=== PATIENT | male | born 1945 | race Caucasian/White ===

== ENCOUNTER 2016-11-12 15:09 | Inpatient (IN) | payer OTHER ==
[~2016-11-12] VITALS: Ht 167.6 cm; Wt 88.8 kg
[~2016-11-12 15:09] MED LIST: ADVAIR HFA120 INHALA IH; ASPIRIN EC325 MG PO; ASPIRIN325 MG PO; Advair 250/50 Diskus IH; Advair HFA 115/21 IH; Ambien PO; Aspirin E.C. PO; Atarax,Vistaril PO; CITALOPRAM HBR10 MG PO; Combivent IH; DALIRESP500 MCG PO; DIABETES MED PO; Ecotrin PO; Fioricet,Esgic,Repan PO; GABAPENTIN300 MG PO; HABITROL,NICODE21 MG TD; Habitrol,Nicoderm CQ TD; JANUVIA100 MG PO; LIBRIUM25 MG PO; Levaquin PO; MOTRIN600 MG PO; Mevacor PO; Motrin PO; NOHOMEMEDS; OXYCODONE HCL15 MG PO; OXYCODONE HCL20 M1 PO; OXYCODONE-APAP1 EACH; OXYCONTIN15 MG; PREDNISONE10 MG PO; PREDNISONE20 MG PO; PROAIR HFA8.5 GM IH; PROTONIX40 MG PO; Percocet 5/325,Endoc PO; Protonix PO; Remove Nicotine Patc TD; SKELAXIN800 MG PO; SPIRIVA1 INHALATI IH; SYMBICORT60 INHALAT; Singulair PO; THERAGRAN1 TABLET PO; TYLENOL REGULA325 MG PO; TYLENOL WITH C1 EACH PO; Theragran PO; Thiamine,Vitamin B1 PO; UNABLEOBTAIN; VITAMIN B-1100 MG PO; Zithromax PO; celeXA PO; oxyCODONE PO; predniSONE PO
[2016-11-12 16:34] LABS: EOSINOPHIL (%) 1.9 % (0-5); EOSINOPHIL COUNT 0.2 K/uL (0-0.3); HEMATOCRIT 44.2 % (38.0-50.0); IMMATURE GRANULOCYTE (%) 0.2 % (0.0-0.7); IMMATURE GRANULOCYTE COUNT 0.2 K/uL; LYMPHOCYTE COUNT 1.8 K/uL (1.0-2.8); MCH 29.8 PG (29.0-34.0); MCHC 34.6 G/DL (30.0-36.0); MEAN PLAT.VOLUME 11.1 uM^3 (9.0-12.4); MONOCYTE (%) 9.2 % (3-12); NEUTROPHIL (%) 71.2 % (45-76); NEUTROPHIL COUNT 7.5 K/uL (1.8-6.4); PLATELET COUNT 269 K/uL (156-360); RBC DIS.WIDTH-CV 13.3 % (11.8-14.6); RBC DIS.WIDTH-SD 40.9 % (39-53); RED BLOOD COUNT 5.14 M/uL (4.00-5.50); WHITE BLOOD COUNT 10.5 K/uL (4.1-10.2)
[2016-11-12 16:41] LABS: CHLORIDE 104 mEq/L (99-109); POTASSIUM 4.3 mEq/L (3.7-5.4); SODIUM 140 mEq/L (136-147)
[2016-11-12 16:42] LABS: GLUCOSE 122 mg/dL (70-99)
[2016-11-12 16:43] LABS: INTER. NORMALIZED RATIO 1.1; PROTHROMBIN TIME 10.7 (9.2-11.2); PTT 25.7 (25-32)
[2016-11-12 16:44] LABS: ANION GAP 14 MEQ/L (2-14)
[2016-11-12 16:45] LABS: SERUM ETHYL ALCOHOL < 10 mg/dL
[2016-11-12 16:46] LABS: GFR ESTIMATE (CALCULATED) > 59 mL/min/
[2016-11-12 16:47] LABS: UREA NITROGEN (BUN) 15 mg/dL (9-23)
[2016-11-12 16:53] LABS: TROP-I INTERPRETATION NEGATIVE; TROPONIN-I < 0.01 ng/mL (0.0-0.30)
[2016-11-12 18:09] LABS: ADD MIUA? NO; BILIRUBIN NEGATIVE; BLOOD NEGATIVE; COLOR YELLOW ((YELLOW)); GLUCOSE (STRIP) NEGATIVE; KETONES TRACE; LEUKOCYTES NEGATIVE; NITRITE NEGATIVE; PROTEIN (STRIP) NEGATIVE; SPECIFIC GRAVITY 1.014 (1.000-1.030); UCUL ADDED? NO
[2016-11-12 18:30] LABS: AMPHETAMINE NEGATIVE (500 ng/mL); BARBITURATES NEGATIVE (200 ng/mL); BENZODIAZEPINES PRESUMPTIVE POSITIVE (150 ng/mL); COCAINE NEGATIVE (150 ng/mL); INTERNAL CONTROLS VALID? YES; METHADONE NEGATIVE (200 ng/mL); METHAMPHETAMINE NEGATIVE (500 ng/mL); OPIATES (MORPHINE) NEGATIVE (100 ng/mL); OXYCODONE NEGATIVE (100 ng/mL); PHENCYCLIDINE NEGATIVE (25 ng/mL); PROPOXYPHENE NEGATIVE (300 ng/mL); THC CANNABINOIDS NEGATIVE (50 ng/mL); TRICYCLIC ANTIDEPRESSANTS NEGATIVE (300 ng/mL)
[2016-11-12 18:31] LABS: ADD MEDTOX COMMENT Y
[2016-11-12 19:20] LABS: BENZODIAZEPINES QUANT VALUE 0 NG/ML
[2016-11-12 19:21] LABS: BENZODIAZEPINES, URINE SCREEN Negative (200 ng/mL)
[2016-11-12 23:44] VITALS: BP 118/74
[2016-11-13 01:00] LABS: MAGNESIUM 2.1 mg/dL (1.3-2.7)
[2016-11-13 07:38] VITALS: BP 108/57
[2016-11-13 11:28] VITALS: BP 116/71
[2016-11-13 12:44] LABS: TOTAL BILIRUBIN 0.6 mg/dL (0.0-1.0)
[2016-11-13 12:45] LABS: ALKALINE PHOSPHATASE 94 IU/L (3-129)
[2016-11-13 12:48] LABS: DIRECT BILIRUBIN 0.3 mg/dL (0.0-0.3)
[2016-11-13 15:40] VITALS: BP 121/64
[2016-11-14 04:00] VITALS: BP 140/77
[2016-11-14 08:01] VITALS: BP 119/70
[2016-11-14 15:36] VITALS: BP 105/65
[2016-11-14 21:34] LABS: POINT-OF-CARE METER ID UU13113830
[2016-11-15 08:02] LABS: POINT-OF-CARE METER ID UU13113830; POINT-OF-CARE USER ID HRSENV50
[2016-11-15 09:05] VITALS: BP 101/65
[2016-11-15 12:06] LABS: POINT-OF-CARE METER ID UU13113830
[2016-11-15 12:10] LABS: HEMATOCRIT 39.4 % (38.0-50.0); MCV 88.3 FL (86-99); MEAN PLAT.VOLUME 11.3 uM^3 (9.0-12.4); PLATELET COUNT 216 K/uL (156-360); RBC DIS.WIDTH-CV 13.1 % (11.8-14.6); RBC DIS.WIDTH-SD 42.3 % (39-53); RED BLOOD COUNT 4.46 M/uL (4.00-5.50)
[2016-11-15 12:20] LABS: WHITE BLOOD COUNT 7.3 K/uL (4.1-10.2)
[2016-11-15 12:23] LABS: ALKALINE PHOSPHATASE 79 IU/L (3-129); ANION GAP 6 MEQ/L (2-14); CHLORIDE 104 MEQ/L (99-109); GFR ESTIMATE (CALCULATED) > 59 mL/min/; GLUCOSE 121 mg/dL (70-99); POTASSIUM 4.3 MEQ/L (3.7-5.4); SAMPLE HEMOLYSIS CHECK 0; SAMPLE ICTERIC CHECK 0; SAMPLE LIPEMIA CHECK 0; SODIUM 139 MEQ/L (136-147); TOTAL BILIRUBIN 0.6 MG/DL (0.0-1.0); UREA NITROGEN (BUN) 15 mg/dL (9-23)
[2016-11-15 15:49] VITALS: BP 101/55
[2016-11-15 16:40] LABS: POINT-OF-CARE METER ID UU13113830
[2016-11-15 20:49] LABS: POINT-OF-CARE METER ID UU13113830
[2016-11-15 23:45] VITALS: BP 114/69
[2016-11-16 06:23] LABS: POINT-OF-CARE METER ID UU13113830; POINT-OF-CARE USER ID BHSSMG
[2016-11-16 07:55] LABS: Estimated Average Glucose 131 mg/dL (70-123); HEMOGLOBIN A1c (GLYCOHEMOGLOB) 6.2 % HGB (Below 5.7)
[2016-11-16 08:14] VITALS: BP 117/67
[2016-11-16 16:27] VITALS: BP 102/69
[2016-11-16 17:24] LABS: POINT-OF-CARE METER ID UU13113830; POINT-OF-CARE USER ID BHSMEW
[2016-11-16 18:16] LABS: POINT-OF-CARE METER ID UU13113830
[2016-11-16 20:44] LABS: POINT-OF-CARE METER ID UU13113830; POINT-OF-CARE USER ID BHSMEW
[2016-11-17 06:28] LABS: POINT-OF-CARE METER ID UU13113830
[2016-11-17 07:55] VITALS: BP 118/63
[2016-11-17 11:45] LABS: POINT-OF-CARE METER ID UU13113830
[2016-11-17 15:37] VITALS: BP 113/63
[2016-11-17 16:41] LABS: POINT-OF-CARE METER ID UU13113830; POINT-OF-CARE USER ID BHSLRM
[2016-11-17 21:31] LABS: POINT-OF-CARE METER ID UU13113830; POINT-OF-CARE USER ID BHSLRM
[2016-11-17 21:56] LABS: POINT-OF-CARE METER ID UU13113830; POINT-OF-CARE USER ID BHSLRM
[2016-11-18 06:26] LABS: POINT-OF-CARE METER ID UU13113830; POINT-OF-CARE USER ID BHSSMG
[2016-11-18 07:53] VITALS: BP 113/62
[2016-11-18 11:10] LABS: POINT-OF-CARE METER ID UU13113830; POINT-OF-CARE USER ID HRSENV50
[2016-11-18 15:22] VITALS: BP 111/60
[2016-11-18 16:39] LABS: POINT-OF-CARE METER ID UU13113830; POINT-OF-CARE USER ID BHSLRM
[2016-11-18 21:01] LABS: POINT-OF-CARE METER ID UU13113830; POINT-OF-CARE USER ID BHSLRM
[2016-11-19 06:12] LABS: POINT-OF-CARE METER ID UU13113830; POINT-OF-CARE USER ID ENVTLS63
[2016-11-19 09:06] VITALS: BP 114/62
[2016-11-19 12:34] LABS: POINT-OF-CARE METER ID UU13113830; POINT-OF-CARE USER ID HRSENV50
[2016-11-19 15:47] VITALS: BP 117/59
[2016-11-19 17:10] LABS: POINT-OF-CARE METER ID UU13113830
[2016-11-19 20:53] LABS: POINT-OF-CARE METER ID UU13113830
[2016-11-20 06:17] LABS: POINT-OF-CARE METER ID UU13113830; POINT-OF-CARE USER ID ENVTLS63
[2016-11-20 07:47] VITALS: BP 115/59
[2016-11-20 11:39] LABS: POINT-OF-CARE METER ID UU13113830; POINT-OF-CARE USER ID BHSLRM
[2016-11-20 15:05] VITALS: BP 103/62
[2016-11-20 16:39] LABS: POINT-OF-CARE METER ID UU13113830; POINT-OF-CARE USER ID BHSLRM
[2016-11-20 18:58] VITALS: BP 134/70
[2016-11-20 21:13] LABS: POINT-OF-CARE METER ID UU13113830
[2016-11-21 06:16] LABS: POINT-OF-CARE METER ID UU13113830
[2016-11-21 07:41] VITALS: BP 118/57
[2016-11-21 08:14] LABS: HEMATOCRIT 42.2 % (38.0-50.0); MCH 29.1 PG (29.0-34.0); MCHC 32.7 G/DL (30.0-36.0); MEAN PLAT.VOLUME 11.3 uM^3 (9.0-12.4); PLATELET COUNT 234 K/uL (156-360); RBC DIS.WIDTH-CV 13.3 % (11.8-14.6); RBC DIS.WIDTH-SD 42.8 % (39-53); RED BLOOD COUNT 4.74 M/uL (4.00-5.50); WHITE BLOOD COUNT 6.6 K/uL (4.1-10.2)
[2016-11-21 08:34] LABS: ALKALINE PHOSPHATASE 87 IU/L (3-129); ANION GAP 4 MEQ/L (2-14); CHLORIDE 103 MEQ/L (99-109); GFR ESTIMATE (CALCULATED) > 59 mL/min/; GLUCOSE 85 mg/dL (70-99); POTASSIUM 5.1 MEQ/L (3.7-5.4); SAMPLE HEMOLYSIS CHECK 0; SAMPLE ICTERIC CHECK 0; SAMPLE LIPEMIA CHECK 0; SODIUM 141 MEQ/L (136-147); TOTAL BILIRUBIN 0.6 MG/DL (0.0-1.0); UREA NITROGEN (BUN) 21 mg/dL (9-23)
[2016-11-21 12:25] LABS: POINT-OF-CARE METER ID UU13113830
[2016-11-21 15:31] VITALS: BP 101/52
[2016-11-21 17:26] LABS: POINT-OF-CARE METER ID UU13113830
[2016-11-21 21:30] LABS: POINT-OF-CARE METER ID UU13113830
[2016-11-22 06:11] LABS: POINT-OF-CARE METER ID UU13113830
[2016-11-22 07:32] VITALS: BP 119/68
[2016-11-22 11:49] LABS: POINT-OF-CARE METER ID UU13113830
[2016-11-22 15:44] VITALS: BP 109/70
[2016-11-22 16:50] LABS: POINT-OF-CARE METER ID UU13113830; POINT-OF-CARE USER ID BHSLRM
[2016-11-22 21:17] LABS: POINT-OF-CARE METER ID UU13113830
[2016-11-23 06:12] LABS: POINT-OF-CARE METER ID UU13113830; POINT-OF-CARE USER ID ENVTLS63
[2016-11-23 08:04] VITALS: BP 108/70
[2016-11-23 13:05] LABS: POINT-OF-CARE METER ID UU13113830
[2016-11-23 15:39] VITALS: BP 114/56
[2016-11-24 07:45] VITALS: BP 113/58
[2016-11-24] MEDS ORDERED: NALTREXONE HCL50 MG PO (10:01)
[2016-11-24] MEDS ORDERED: JANUVIA100 MG PO (10:01)
[2016-11-24] MEDS ORDERED: METFORMIN HCL500 MG PO (10:01)
[2016-11-24] MEDS ORDERED: PANTOPRAZOLE SO40 MG PO (10:01)
[2016-11-24] MEDS ORDERED: DICLOFENAC SODI75 MG PO (10:01)
[2016-11-24] MEDS ORDERED: DULOXETINE HCL60 MG PO (10:01)
== END 2016-11-24 11:31 | disposition home or self-care (01) | DRG 885 ==
LOC: EME 15:09 → 1WEST 21:26 → EDOF 21:26 → 1WEST 21:26
PROVIDERS: Emergency Medicine; Internal Medicine; Psychiatry & Neurology Psychiatry
DX: F33.2 Major depressive disorder, recurrent severe without psychotic features (principal); R45.851 Suicidal ideations; F10.20 Alcohol dependence, uncomplicated; I48.0 Paroxysmal atrial fibrillation; Q79.59 Other congenital malformations of abdominal wall; I10 Essential (primary) hypertension; I25.10 Atherosclerotic heart disease of native coronary artery without angina pectoris; M54.16 Radiculopathy, lumbar region; E11.9 Type 2 diabetes mellitus without complications; J45.909 Unspecified asthma, uncomplicated; M41.9 Scoliosis, unspecified; M45.9 Ankylosing spondylitis of unspecified sites in spine; Z95.0 Presence of cardiac pacemaker; I25.2 Old myocardial infarction
CPT/HCPCS: 70450; 71010; 80048; 80053; 80076; 81003; 82948; 83036; 83735; 84484; 84999; 85025; 85027; 85610; 85730; 90839; 93005; 97003 GO; 97150 GO; 99281; 99285; G0478; G0480; J1815; Q0169

== ENCOUNTER 2017-10-19 20:14 | Emergency (ER) | payer OTHER ==
[~2017-10-19] VITALS: Ht 165.1 cm; Wt 82.5 kg
[~2017-10-19 20:14] MED LIST changes: +DICLOFENAC SODI75 MG PO; +DULOXETINE HCL60 MG PO; +METFORMIN HCL500 MG PO; +NALTREXONE HCL50 MG PO; +NORCO 5/3251 TABLET PO; +PANTOPRAZOLE SO40 MG PO; +VALTREX1000 MG PO
[2017-10-19 20:42] LABS: HEMATOCRIT 46.4 % (38.0-50.0); MCH 29.4 PG (29.0-34.0); MCHC 33.4 G/DL (30.0-36.0); MEAN PLAT.VOLUME 10.6 uM^3 (9.0-12.4); PLATELET COUNT 346 K/uL (156-360); RED BLOOD COUNT 5.27 M/uL (4.00-5.50); WHITE BLOOD COUNT 6.7 K/uL (4.1-10.2)
[2017-10-19 20:49] LABS: CHLORIDE 105 mEq/L (99-109); POTASSIUM 4.2 mEq/L (3.7-5.4); SODIUM 139 mEq/L (136-147)
[2017-10-19 20:51] LABS: GLUCOSE 108 mg/dL (70-99)
[2017-10-19 20:52] LABS: ANION GAP 8 MEQ/L (2-14)
[2017-10-19 20:55] LABS: GFR ESTIMATE (CALCULATED) > 59 mL/min/
[2017-10-19 20:56] LABS: UREA NITROGEN (BUN) 15 mg/dL (9-23)
[2017-10-19 21:02] LABS: TROP-I INTERPRETATION NEGATIVE; TROPONIN-I < 0.01 ng/mL (0.0-0.30)
[2017-10-19] MEDS ORDERED: VENTOLIN HFA18 GM IH (21:46)
[2017-10-19] MEDS ORDERED: PREDNISONE20 MG PO (21:46)
[2017-10-19] MEDS ORDERED: AQUAPHOR OINTM105 GM TP (21:46)
[2017-10-19] MEDS ORDERED: ATARAX,VISTARIL25 MG PO (21:46)
[2017-10-19] MEDS ORDERED: PERCOCET 5/31 TABLET PO (21:48)
[2017-10-19 22:13] VITALS: BP 132/87
== END 2017-10-19 22:14 | disposition home or self-care (01) ==
LOC: RME 20:14 → EME 20:14 → RME 22:14
DX: B02.29 Other postherpetic nervous system involvement (principal); L85.3 Xerosis cutis; L20.9 Atopic dermatitis, unspecified; J44.9 Chronic obstructive pulmonary disease, unspecified; E11.9 Type 2 diabetes mellitus without complications; I10 Essential (primary) hypertension; G47.30 Sleep apnea, unspecified; F32.9 Major depressive disorder, single episode, unspecified; M41.9 Scoliosis, unspecified; F17.200 Nicotine dependence, unspecified, uncomplicated; I25.2 Old myocardial infarction; Z85.9 Personal history of malignant neoplasm, unspecified; Z88.8 Allergy status to other drugs, medicaments and biological substances
CPT/HCPCS: 71020; 80048; 84484; 85027; 93005; 99281; 99284; J7512; Q0177

== ENCOUNTER 2017-11-05 08:33 | Emergency (ER) | payer OTHER ==
[~2017-11-05] VITALS: Ht 167.6 cm; Wt 82.2 kg
[~2017-11-05 08:33] MED LIST changes: +AQUAPHOR OINTM105 GM TP; +ATARAX,VISTARIL25 MG PO; +PERCOCET 5/31 TABLET PO; +VENTOLIN HFA18 GM IH
[2017-11-05] MEDS ORDERED: PERCOCET 5/31 TABLET PO (10:39)
[2017-11-05 11:10] VITALS: BP 125/94
== END 2017-11-05 11:10 | disposition home or self-care (01) ==
LOC: EME 08:33
DX: L98.8 Other specified disorders of the skin and subcutaneous tissue (principal); R21 Rash and other nonspecific skin eruption; F17.200 Nicotine dependence, unspecified, uncomplicated
CPT/HCPCS: 99281; 99284

== ENCOUNTER 2017-11-23 08:14 | Emergency (ER) | payer OTHER ==
[~2017-11-23] VITALS: Ht 165.1 cm; Wt 84.4 kg
[2017-11-23 08:22] VITALS: BP 160/68
[2017-11-23 08:49] LABS: HEMATOCRIT 43.4 % (38.0-50.0); HEMOGLOBIN 14.4 G/DL (12.5-16.6); MCH 29.7 PG (29.0-34.0); MCHC 33.2 G/DL (30.0-36.0); MCV 89.5 FL (86-99); PLATELET COUNT 289 K/uL (156-360); RBC DIS.WIDTH-CV 13.5 % (11.8-14.6); RBC DIS.WIDTH-SD 44.4 % (39-53); RED BLOOD COUNT 4.85 M/uL (4.00-5.50); WHITE BLOOD COUNT 7.6 K/uL (4.1-10.2)
[2017-11-23 09:02] LABS: CHLORIDE 102 mEq/L (99-109); POTASSIUM 4.5 mEq/L (3.7-5.4); SODIUM 140 mEq/L (136-147)
[2017-11-23 09:04] LABS: GLUCOSE 156 mg/dL (70-99)
[2017-11-23 09:07] LABS: GFR ESTIMATE (CALCULATED) > 59 mL/min/ (58.99-99999)
[2017-11-23 09:08] LABS: UREA NITROGEN (BUN) 16 mg/dL (9-23)
[2017-11-23] MEDS ORDERED: PROVENTIL HFA6.7 GM IH (11:28)
[2017-11-23] MEDS ORDERED: ZITHROMAX250 MG PO (11:28)
[2017-11-23] MEDS ORDERED: PREDNISONE20 MG PO (11:28)
== END 2017-11-23 12:21 | disposition left against medical advice (07) ==
LOC: EME 08:14
DX: J18.9 Pneumonia, unspecified organism (principal); J45.909 Unspecified asthma, uncomplicated; F17.200 Nicotine dependence, unspecified, uncomplicated
CPT/HCPCS: 71046; 80048; 85027; 94640; J7512

== ENCOUNTER 2018-05-16 09:33 | Inpatient (IN) | payer OTHER ==
[~2018-05-16] VITALS: Ht 167.6 cm; Wt 80.5 kg
[~2018-05-16 09:33] MED LIST changes: +PROVENTIL HFA6.7 GM IH; +ZITHROMAX250 MG PO
[2018-05-16 10:41] LABS: HEMATOCRIT 42.1 % (38.0-50.0); HEMOGLOBIN 14.3 G/DL (12.5-16.6); MCH 30.2 PG (29.0-34.0); PLATELET COUNT 252 K/uL (156-360); RBC DIS.WIDTH-CV 14.6 % (11.8-14.6); RED BLOOD COUNT 4.73 M/uL (4.00-5.50); WHITE BLOOD COUNT 5.7 K/uL (4.1-10.2)
[2018-05-16 10:51] LABS: ALBUMIN 3.9 g/dL (3.2-4.8); CHLORIDE 106 mEq/L (99-109); POTASSIUM 4.4 mEq/L (3.7-5.4); SODIUM 141 mEq/L (136-147)
[2018-05-16 10:54] LABS: GLUCOSE 111 mg/dL (70-99); TOTAL PROTEIN 6.3 g/dL (6.4-8.3)
[2018-05-16 10:56] LABS: TOTAL BILIRUBIN 0.6 mg/dL (0.0-1.0)
[2018-05-16 10:57] LABS: SERUM ETHYL ALCOHOL < 10 mg/dL
[2018-05-16 10:58] LABS: ALKALINE PHOSPHATASE 92 IU/L (3-129); CREATININE 0.8 mg/dL (0.6-1.3); GFR ESTIMATE (CALCULATED) > 59 mL/min/ (58.99-99999)
[2018-05-16 10:59] LABS: AST (GOT) 21 IU/L (2-34); UREA NITROGEN (BUN) 11 mg/dL (9-23)
[2018-05-16 11:01] LABS: ALT (GPT) 14 IU/L (3-49)
[2018-05-16 11:51] LABS: AMPHETAMINE NEGATIVE (500 ng/mL); BARBITURATES NEGATIVE (200 ng/mL); BENZODIAZEPINES NEGATIVE (150 ng/mL); BUPRENORPHINE NEGATIVE (10 ng/mL); COCAINE NEGATIVE (150 ng/mL); METHADONE NEGATIVE (200 ng/mL); METHAMPHETAMINE NEGATIVE (500 ng/mL); OPIATES (MORPHINE) NEGATIVE (100 ng/mL); OXYCODONE NEGATIVE (100 ng/mL); PHENCYCLIDINE NEGATIVE (25 ng/mL); PROPOXYPHENE NEGATIVE (300 ng/mL); THC CANNABINOIDS NEGATIVE (50 ng/mL); TRICYCLIC ANTIDEPRESSANTS NEGATIVE (300 ng/mL)
[2018-05-16 15:58] VITALS: BP 170/71
[2018-05-16 16:43] VITALS: BP 170/71
[2018-05-17 07:47] VITALS: BP 161/77
[2018-05-17 16:02] VITALS: BP 124/61
[2018-05-18 07:55] VITALS: BP 158/82
[2018-05-18 16:43] VITALS: BP 108/51
[2018-05-19 08:29] VITALS: BP 114/57
[2018-05-19 16:31] VITALS: BP 100/58
[2018-05-20 07:49] VITALS: BP 112/61
[2018-05-20 16:25] VITALS: BP 125/66
[2018-05-21 07:45] VITALS: BP 96/48
[2018-05-21 15:12] VITALS: BP 126/60
[2018-05-22 07:56] VITALS: BP 114/57
[2018-05-22 15:24] VITALS: BP 101/55
[2018-05-23] MEDS ORDERED: EFFEXOR XR37.5 MG PO (08:49)
[2018-05-23] MEDS ORDERED: IBUPROFEN800 MG PO (08:49)
[2018-05-23] MEDS ORDERED: DOCUSATE SODIU100 MG PO (08:49)
[2018-05-23] MEDS ORDERED: EFFEXOR XR75 MG PO (08:49)
[2018-05-23] MEDS ORDERED: FOLIC ACID1 MG PO (08:49)
[2018-05-23] MEDS ORDERED: Thiamine,Vitamin B1 PO (08:49)
[2018-05-23] MEDS ORDERED: NEURONTIN400 MG PO (08:49)
[2018-05-23] MEDS ORDERED: MINIPRESS2 MG PO (08:49)
[2018-05-23 09:23] VITALS: BP 110/61
== END 2018-05-23 12:28 | disposition other institution (70) | DRG 897 ==
LOC: EME 09:33 → 1WEST 12:47 → EDOF 12:47 → 1WEST 12:47 → ENRESERV 15:35 → 1WEST 15:42
PROVIDERS: Emergency Medicine; Psychiatry & Neurology Psychiatry
DX: F10.239 Alcohol dependence with withdrawal, unspecified (principal); F33.2 Major depressive disorder, recurrent severe without psychotic features; R45.851 Suicidal ideations; F43.29 Adjustment disorder with other symptoms; F51.5 Nightmare disorder; E11.9 Type 2 diabetes mellitus without complications; I10 Essential (primary) hypertension; I48.91 Unspecified atrial fibrillation; J45.909 Unspecified asthma, uncomplicated; G47.30 Sleep apnea, unspecified; M41.9 Scoliosis, unspecified; G89.29 Other chronic pain; M54.9 Dorsalgia, unspecified; M25.559 Pain in unspecified hip; I25.2 Old myocardial infarction; F17.200 Nicotine dependence, unspecified, uncomplicated; Z86.73 Personal history of transient ischemic attack (TIA), and cerebral infarction without residual deficits; Z63.4 Disappearance and death of family member; Z91.14 Patient's other noncompliance with medication regimen
CPT/HCPCS: 80053; 82140; 82800; 82948; 83930; 85027; 90839; 94640; 94640 76; 97150 GO; 97165 GO; 99202; 99281; 99285; G0480

== ENCOUNTER 2018-07-04 13:59 | Emergency (ER) | payer OTHER ==
[~2018-07-04] VITALS: Ht 180.3 cm; Wt 81.9 kg
[~2018-07-04 13:59] MED LIST changes: +DOCUSATE SODIU100 MG PO; +EFFEXOR XR37.5 MG PO; +EFFEXOR XR75 MG PO; +FOLIC ACID1 MG PO; +IBUPROFEN800 MG PO; +MINIPRESS2 MG PO; +NEURONTIN400 MG PO
[2018-07-04 14:44] LABS: BASOPHIL (%) 0.4 % (0-1); EOSINOPHIL (%) 6.1 % (0-5); EOSINOPHIL COUNT 0.3 K/uL (0-0.3); HEMOGLOBIN 14.3 G/DL (12.5-16.6); IMMATURE GRANULOCYTE (%) 0.4 % (0.0-0.7); LYMPHOCYTE (%) 38.9 % (15-42); LYMPHOCYTE COUNT 2.1 K/uL (1.0-2.8); MCH 30.6 PG (29.0-34.0); MCV 89.7 FL (86-99); MONOCYTE (%) 10.3 % (3-12); MONOCYTE COUNT 0.6 K/uL (0-0.8); NEUTROPHIL (%) 43.9 % (45-76); NEUTROPHIL COUNT 2.4 K/uL (1.8-6.4); PLATELET COUNT 240 K/uL (156-360); RBC DIS.WIDTH-CV 13.2 % (11.8-14.6); RBC DIS.WIDTH-SD 43.1 % (39-53); RED BLOOD COUNT 4.68 M/uL (4.00-5.50); WHITE BLOOD COUNT 5.4 K/uL (4.1-10.2)
[2018-07-04 14:52] LABS: CHLORIDE 109 mEq/L (99-109); POTASSIUM 4.5 mEq/L (3.7-5.4); SODIUM 145 mEq/L (136-147)
[2018-07-04 14:53] LABS: MAGNESIUM 2.1 mg/dL (1.3-2.7)
[2018-07-04 14:54] LABS: GLUCOSE 128 mg/dL (70-99)
[2018-07-04 14:58] LABS: CREATININE 0.8 mg/dL (0.6-1.3); GFR ESTIMATE (CALCULATED) > 59 mL/min/ (58.99-99999); SERUM ETHYL ALCOHOL 302 mg/dL
[2018-07-04 14:59] LABS: UREA NITROGEN (BUN) 18 mg/dL (9-23)
[2018-07-04 23:39] LABS: AMPHETAMINE NEGATIVE (500 ng/mL); BARBITURATES NEGATIVE (200 ng/mL); BENZODIAZEPINES PRESUMPTIVE POSITIVE (150 ng/mL); BUPRENORPHINE NEGATIVE (10 ng/mL); COCAINE NEGATIVE (150 ng/mL); METHADONE NEGATIVE (200 ng/mL); METHAMPHETAMINE NEGATIVE (500 ng/mL); OPIATES (MORPHINE) NEGATIVE (100 ng/mL); OXYCODONE NEGATIVE (100 ng/mL); PHENCYCLIDINE NEGATIVE (25 ng/mL); PROPOXYPHENE NEGATIVE (300 ng/mL); THC CANNABINOIDS NEGATIVE (50 ng/mL); TRICYCLIC ANTIDEPRESSANTS NEGATIVE (300 ng/mL)
[2018-07-05 00:41] VITALS: BP 140/68
[2018-07-05 04:06] LABS: BENZODIAZEPINES, URINE SCREEN POSITIVE (200 ng/mL)
== END 2018-07-05 00:45 | disposition home or self-care (01) ==
LOC: EME 13:59
PROVIDERS: Emergency Medicine
DX: F10.129 Alcohol abuse with intoxication, unspecified (principal); Y90.8 Blood alcohol level of 240 mg/100 ml or more; Z91.81 History of falling; I44.0 Atrioventricular block, first degree; E11.9 Type 2 diabetes mellitus without complications; I10 Essential (primary) hypertension; J45.909 Unspecified asthma, uncomplicated; G47.30 Sleep apnea, unspecified; M41.9 Scoliosis, unspecified; F32.9 Major depressive disorder, single episode, unspecified; I25.2 Old myocardial infarction; F17.200 Nicotine dependence, unspecified, uncomplicated; Z88.8 Allergy status to other drugs, medicaments and biological substances
CPT/HCPCS: 70450; 80048; 83735; 84999; 85025; 93005; 99281; 99285; G0480; J1200; J1630; J2060; J2250; J7040

== ENCOUNTER 2018-07-12 22:56 | Emergency (ER) | payer OTHER ==
[~2018-07-12] VITALS: Ht 167.6 cm; Wt 83.3 kg
[2018-07-12 23:42] LABS: BASOPHIL (%) 0.3 % (0-1); EOSINOPHIL (%) 1.9 % (0-5); EOSINOPHIL COUNT 0.2 K/uL (0-0.3); HEMATOCRIT 42.6 % (38.0-50.0); HEMOGLOBIN 14.3 G/DL (12.5-16.6); IMMATURE GRANULOCYTE (%) 0.3 % (0.0-0.7); LYMPHOCYTE (%) 22.6 % (15-42); LYMPHOCYTE COUNT 1.8 K/uL (1.0-2.8); MCH 30.6 PG (29.0-34.0); MCHC 33.6 G/DL (30.0-36.0); MCV 91.2 FL (86-99); MONOCYTE (%) 11.9 % (3-12); MONOCYTE COUNT 0.9 K/uL (0-0.8); NEUTROPHIL COUNT 4.9 K/uL (1.8-6.4); PLATELET COUNT 201 K/uL (156-360); RBC DIS.WIDTH-CV 13.1 % (11.8-14.6); RBC DIS.WIDTH-SD 43.4 % (39-53); RED BLOOD COUNT 4.67 M/uL (4.00-5.50); WHITE BLOOD COUNT 7.8 K/uL (4.1-10.2)
[2018-07-12 23:54] LABS: CHLORIDE 105 mEq/L (99-109); POTASSIUM 4.8 mEq/L (3.7-5.4); SODIUM 140 mEq/L (136-147)
[2018-07-12 23:55] LABS: GLUCOSE 120 mg/dL (70-99)
[2018-07-12 23:59] LABS: CREATININE 0.9 mg/dL (0.6-1.3); GFR ESTIMATE (CALCULATED) > 59 mL/min/ (58.99-99999); SERUM ETHYL ALCOHOL < 10 mg/dL
[2018-07-13] LABS: UREA NITROGEN (BUN) 15 mg/dL (9-23)
[2018-07-13 00:13] LABS: TROP-I INTERPRETATION NEGATIVE; TROPONIN-I < 0.01 ng/mL (0.0-0.30)
[2018-07-13 00:36] LABS: ERTH.SED.RATE 14 MM/HR (0-20)
[2018-07-13] MEDS ORDERED: PERCOCET 5/31 TABLET PO (02:33)
[2018-07-13] MEDS ORDERED: FLEXERIL10 MG PO (02:33)
[2018-07-13] MEDS ORDERED: LIDODERM 5% P1 PATCH TD (02:33)
[2018-07-13 02:59] VITALS: BP 171/78
== END 2018-07-13 02:59 | disposition home or self-care (01) ==
LOC: EME 22:56
PROVIDERS: Emergency Medicine
DX: R51 Headache (principal); M54.9 Dorsalgia, unspecified; G89.29 Other chronic pain; F10.10 Alcohol abuse, uncomplicated; I10 Essential (primary) hypertension; J45.909 Unspecified asthma, uncomplicated; E11.9 Type 2 diabetes mellitus without complications; M41.9 Scoliosis, unspecified; G47.30 Sleep apnea, unspecified; F32.9 Major depressive disorder, single episode, unspecified; I25.2 Old myocardial infarction; F17.200 Nicotine dependence, unspecified, uncomplicated; Z88.8 Allergy status to other drugs, medicaments and biological substances
CPT/HCPCS: 70496; 70498; 71045; 80048; 84484; 85025; 85651; 93005; 99281; 99285; G0480; J0780; J2765; J3010; J7030